=== PATIENT | female | born 1940 | race Two or more races ===

== ENCOUNTER 2019-04-03 10:49 | Emergency (ER) | payer MEDICARE, OTHER ==
[~2019-04-03] VITALS: Ht 160 cm; Wt 91.0 kg
[~2019-04-03 10:49] MED LIST: CLOP75TA16
[2019-04-03 16:17] VITALS: BP 155/89
== END 2019-04-03 16:18 | disposition home or self-care (01) ==
LOC: ER 11:12
DX: S09.8XXA Other specified injuries of head, initial encounter (principal); E78.00 Pure hypercholesterolemia, unspecified; W18.39XA Other fall on same level, initial encounter; Y93.89 Activity, other specified; Y92.89 Other specified places as the place of occurrence of the external cause; Y99.8 Other external cause status
CPT/HCPCS: 99284

== ENCOUNTER 2019-12-29 20:03 | Emergency (ER) | payer OTHER ==
[~2019-12-29] VITALS: Ht 162.6 cm; Wt 90.0 kg
[~2019-12-29 20:03] MED LIST changes: -CLOP75TA16; +CLOP75TA4
[2019-12-29 22:36] LABS: BASOPHILS % 0.7 % (0.0-2.0); EOSINOPHILS % 0.7 % (0.0-5.0); HEMATOCRIT. 39.5 % (36.0-48.0); LYMPHOCYTES % 22.7 % (20.0-50.0); MEAN CORPUSCULAR HEMOGLOBIN 28.3 pg (28.0-32.0); MEAN CORPUSCULAR VOLUME 86.2 fL (81.0-99.0); MEAN PLATELET VOLUME 8.9 fl (7.4-10.4); MONOCYTES % 8.9 % (2.0-8.0); PLATELET 249 x1000/uL (130-400); RED BLOOD CELL COUNT 4.58 mill/uL (4.2-5.4); RED CELL DISTRIBUTION WIDTH 15.8 % (11.6-14.6)
[2019-12-29 22:42] LABS: CHLORIDE 104 mEq/L (98-107)
[2019-12-29 23:15] VITALS: BP 167/82
== END 2019-12-29 23:16 | disposition home or self-care (01) ==
LOC: ER 20:03
DX: B34.9 Viral infection, unspecified (principal); R42 Dizziness and giddiness; H92.03 Otalgia, bilateral
CPT/HCPCS: 36415; 71045; 80053; 85025; 93005; 99284

== ENCOUNTER 2022-07-27 20:18 | Emergency (ER) | payer MEDICARE ==
[~2022-07-27] VITALS: Ht 170.2 cm; Wt 104.0 kg
[~2022-07-27 20:18] MED LIST changes: +ASPI-1406 MT; +CLOP-31 PO; -CLOP75TA4; +COR6 MT; +ERGO1250; +FURO-151 MT; +LOSA50TA41 PO; +SIMV10TA97 PO
[2022-07-27] MEDS ORDERED: ACETAMINOPHEN 325MG TABLET PO ONE (21:15)
[2022-07-27] MEDS ORDERED: HYDR-4001 MT (22:42)
[2022-07-27] MEDS ORDERED: ACET-2708 MT (22:42)
[2022-07-27] MEDS ORDERED: HYDROCODONE/ACETAMINOPHEN 5/325MG TABLET PO ONE (22:45)
[2022-07-27 22:51] VITALS: BP 155/64
== END 2022-07-27 22:45 | disposition home or self-care (01) ==
LOC: ER 20:18
DX: S82.092A Other fracture of left patella, initial encounter for closed fracture (principal); M17.12 Unilateral primary osteoarthritis, left knee; E78.00 Pure hypercholesterolemia, unspecified; I10 Essential (primary) hypertension; W01.0XXA Fall on same level from slipping, tripping and stumbling without subsequent striking against object, initial encounter; Y93.89 Activity, other specified; Y92.009 Unspecified place in unspecified non-institutional (private) residence as the place of occurrence of the external cause; Z88.6 Allergy status to analgesic agent
CPT/HCPCS: 29505; 73552; 73562; 73590; 99284

== ENCOUNTER 2022-09-22 08:10 | Inpatient (IN) | payer MEDICARE ==
[~2022-09-22] VITALS: Ht 162.6 cm; Wt 87.1 kg
[~2022-09-22 08:10] MED LIST changes: +ACET-2708 MT; +HYDR-4001 MT
[2022-09-22] MEDS ORDERED: POTA8TAB70 PO (09:01)
[2022-09-22] MEDS ORDERED: IODIXANOL 320MG/ML 100 ML BOTTLE IV ONE (09:36)
[2022-09-22] MEDS ORDERED: HEPARIN 1000 UNITS/ML 10ML ONE (09:46)
[2022-09-22] MEDS ORDERED: FENTANYL CITRATE/PF 50MCG/ML 2ML VIAL ONE (09:50)
[2022-09-22] MEDS ORDERED: MIDAZOLAM HCL 2 MG/2 ML VIAL ONE (09:50)
[2022-09-22] MEDS ORDERED: LIDOCAINE HCL/PF 2% 20MG/ML 5 ML/VIAL ONE (10:05)
[2022-09-22] MEDS ORDERED: LIDOCAINE HCL 1% 20ML VIAL (Pyxis) INJ ONE (10:20)
[2022-09-22] MEDS ORDERED: HYDRALAZINE 20MG/ML VIAL ONE (10:45)
[2022-09-22] MEDS ORDERED: CLOPIDOGREL 75MG TABLET ONE (10:50)
[2022-09-22] MEDS ORDERED: TICAGRELOR 90 MG TABLET PO ONE (11:02)
[2022-09-22] MEDS ORDERED: ATROPINE SULFATE 1MG/10ML SYR IV PRN (11:15)
[2022-09-22] MEDS ORDERED: ACETAMINOPHEN 325MG TABLET PO PRN (11:15)
[2022-09-22] MEDS ORDERED: ONDANSETRON HCL 4MG/2ML INJ IV PRN (11:15)
[2022-09-22] MEDS ORDERED: MORPHINE SULFATE 2 MG/ML CPJ (NOT FOR IM USE) IV ONE (11:27)
[2022-09-22 12:33] VITALS: BP 133/91
[2022-09-22 13:12] VITALS: BP 133/91
[2022-09-22] MEDS ORDERED: HYDROCODONE/ACETAMINOPHEN 5/325MG TABLET PO NR (14:00)
[2022-09-22] MEDS ORDERED: HYDROCODONE/ACETAMINOPHEN 5/325MG TABLET PO PRN (14:00)
[2022-09-22 16:05] VITALS: BP 188/91
[2022-09-22] MEDS ORDERED: ACETAMINOPHEN 500MG TABLET PO PRN (17:30)
[2022-09-22] MEDS ORDERED: ENALAPRIL 2.5MG/2ML VIAL 2ML IV PRN (17:30)
[2022-09-22] MEDS: TICAGRELOR 90 MG TABLET PO SCH (17:41)
[2022-09-22] MEDS: CARVEDILOL 6.25 MG TABLET PO SCH (17:45)
[2022-09-22] MEDS ORDERED: NALOXONE HCL 0.4MG/ML VIAL IV PRN (19:00)
[2022-09-22] MEDS ORDERED: ENALAPRIL 1.25MG/ML VIAL 1ML IV PRN (19:00)
[2022-09-22 20:04] VITALS: BP 158/75
[2022-09-22] MEDS ORDERED: ATORVASTATIN CALCIUM 10MG TABLET PO SCH (21:00)
[2022-09-22 22:04] VITALS: BP 149/95
[2022-09-23] VITALS (7 sets, daily range): BP systolic 128–162; BP diastolic 64–88
[2022-09-23 07:50] LABS: BASOPHILS % 0.5 % (0.0-2.0); EOSINOPHILS % 0.9 % (0.0-5.0); HEMATOCRIT. 39.3 % (36.0-48.0); LYMPHOCYTES % 15.8 % (20.0-50.0); MEAN CORPUSCULAR HEMOGLOBIN 29.8 pg (28.0-32.0); MEAN PLATELET VOLUME 9.5 fl (7.4-10.4); MONOCYTES % 10.7 % (2.0-8.0); NEUTROPHILS % 72.1 % (40.0-76.0); PLATELET 214 x1000/uL (130-400); RED BLOOD CELL COUNT 4.36 mill/uL (4.2-5.4)
[2022-09-23] MEDS ORDERED: LOSARTAN POTASSIUM 50 MG TABLET PO SCH (09:00)
[2022-09-23] MEDS ORDERED: FUROSEMIDE 40MG TABLET PO SCH (09:00)
[2022-09-23] MEDS ORDERED: POTASSIUM CHLORIDE 8 MEQ TABLET.SA PO SCH (09:00)
[2022-09-23] MEDS: TICAGRELOR 90 MG TABLET PO SCH (09:08)
[2022-09-23] MEDS: CARVEDILOL 6.25 MG TABLET PO SCH (09:08)
[2022-09-23 09:12] LABS: CHLORIDE 103 mEq/L (98-107)
[2022-09-23] MEDS ORDERED: POTASSIUM CHLORIDE 20MEQ/PACKET PO NR (09:56)
== END 2022-09-23 11:30 | disposition home or self-care (01) | DRG 247 ==
LOC: CCL 08:10 → 3WST 08:11
PROVIDERS: ADMIT Specialist; ATTEND Specialist
PROC: 027034Z Dilation of Coronary Artery, One Artery with Drug-eluting Intraluminal Device, Percutaneous Approach (ICD-10-PCS; principal; 2022-09-22)
PROC: 4A023N7 Measurement of Cardiac Sampling and Pressure, Left Heart, Percutaneous Approach (ICD-10-PCS; 2022-09-22)
PROC: B211YZZ Fluoroscopy of Multiple Coronary Arteries using Other Contrast (ICD-10-PCS; 2022-09-22)
PROC: B215YZZ Fluoroscopy of Left Heart using Other Contrast (ICD-10-PCS; 2022-09-22)
DX: I25.10 Atherosclerotic heart disease of native coronary artery without angina pectoris (principal); E87.6 Hypokalemia; I10 Essential (primary) hypertension; E78.5 Hyperlipidemia, unspecified; G47.30 Sleep apnea, unspecified; I44.7 Left bundle-branch block, unspecified; Z88.6 Allergy status to analgesic agent; Z79.02 Long term (current) use of antithrombotics/antiplatelets
CPT/HCPCS: 36415; 80048; 85025; 92928; 93005; 93458; C1725; C1760; C1769; C1874; C1887; C1893; J0360; J1644; J2250; J2270; J3010; J3490; Q9967; J8499

== ENCOUNTER 2022-10-02 15:23 | Inpatient (IN) | payer MEDICARE ==
[~2022-10-02] VITALS: Ht 160 cm; Wt 81.4 kg
[~2022-10-02 15:23] MED LIST changes: +POTA8TAB70 PO
[2022-10-02] MEDS ORDERED: FUROSEMIDE 40MG/4ML VIAL IV ONE (16:00)
[2022-10-02] MEDS ORDERED: NITROGLYCERIN 0.4MG TABLET SL SL PRN (16:00)
[2022-10-02 16:47] LABS: HEMATOCRIT. 41.7 % (36.0-48.0); HEMOGLOBIN. 13.7 g/dL (12.0-16.0); MEAN CORPUSCULAR HEMOGLOBIN 29.1 pg (28.0-32.0); MEAN CORPUSCULAR VOLUME 88.8 fL (81.0-99.0); RED CELL DISTRIBUTION WIDTH 14.8 % (11.6-14.6)
[2022-10-02 17:10] LABS: CHLORIDE 99 mEq/L (98-107)
[2022-10-02 17:48] LABS: PLATELET ESTIMATE NORMAL
[2022-10-02 17:49] LABS: MEAN PLATELET VOLUME 10.7 fl (7.4-10.4); PLATELET 205 x1000/uL (130-400)
[2022-10-02 23:00] VITALS: BP 170/93
[2022-10-03] MEDS ORDERED: NITROGLYCERIN OINT 1GM/INCH UDPKT TD PRN (00:15)
[2022-10-03] MEDS ORDERED: ACETAMINOPHEN 325MG TABLET PO PRN (00:15)
[2022-10-03] MEDS ORDERED: ZOLPIDEM TARTRATE 5MG TABLET PO PRN (00:15)
[2022-10-03] MEDS ORDERED: HYDROCODONE/ACETAMINOPHEN 5/325MG TABLET PO PRN (00:15)
[2022-10-03] MEDS: CLOPIDOGREL 75MG TABLET PO SCH ×2 (00:38→09:36)
[2022-10-03] MEDS ORDERED: NALOXONE HCL 0.4MG/ML VIAL IV PRN (00:45)
[2022-10-03 04:00] VITALS: BP 154/87
[2022-10-03 08:00] VITALS: BP 146/73
[2022-10-03] MEDS ORDERED: FUROSEMIDE 40MG/4ML VIAL IVP SCH (09:00)
[2022-10-03] MEDS: FAMOTIDINE 20MG TABLET PO SCH ×2 (09:36→20:16)
[2022-10-03] MEDS: ENOXAPARIN 40MG/0.4ML SYR SUBCUT SCH (09:36)
[2022-10-03] MEDS: LOSARTAN POTASSIUM 50 MG TABLET PO SCH (09:37)
[2022-10-03] MEDS: CARVEDILOL 6.25 MG TABLET PO SCH ×2 (09:37→20:16)
[2022-10-03 12:00] VITALS: BP 128/71
[2022-10-03] MEDS: LORATADINE 10MG TABLET PO SCH (13:20)
[2022-10-03] MEDS: IPRATROPIUM/ALBUTEROL 0.5-3(2.5)MG/3ML NEB HHN SCH ×2 (13:31→20:24)
[2022-10-03 16:00] VITALS: BP 146/83
[2022-10-03 20:00] VITALS: BP 147/79
[2022-10-03] MEDS ORDERED: ATORVASTATIN CALCIUM 40MG TABLET PO SCH (21:00)
[2022-10-04] VITALS: BP 144/82
[2022-10-04 04:00] VITALS: BP 138/82
[2022-10-04 07:13] LABS: BASOPHILS % 0.7 % (0.0-2.0); EOSINOPHILS % 1.5 % (0.0-5.0); HEMATOCRIT. 38.5 % (36.0-48.0); HEMOGLOBIN. 12.8 g/dL (12.0-16.0); MEAN CORPUSCULAR HEMOGLOBIN 29.4 pg (28.0-32.0); MEAN CORPUSCULAR VOLUME 88.2 fL (81.0-99.0); MEAN PLATELET VOLUME 9.6 fl (7.4-10.4); MONOCYTES % 12.7 % (2.0-8.0); NEUTROPHILS % 61.1 % (40.0-76.0); PLATELET 214 x1000/uL (130-400); RED BLOOD CELL COUNT 4.36 mill/uL (4.2-5.4); RED CELL DISTRIBUTION WIDTH 14.8 % (11.6-14.6)
[2022-10-04 08:00] VITALS: BP 119/71
[2022-10-04] MEDS: IPRATROPIUM/ALBUTEROL 0.5-3(2.5)MG/3ML NEB HHN SCH ×2 (08:23→12:09)
[2022-10-04 08:39] LABS: CHLORIDE 101 mEq/L (98-107)
[2022-10-04] MEDS: LOSARTAN POTASSIUM 50 MG TABLET PO SCH (09:35)
[2022-10-04] MEDS: ENOXAPARIN 40MG/0.4ML SYR SUBCUT SCH (09:35)
[2022-10-04] MEDS: FAMOTIDINE 20MG TABLET PO SCH (09:35)
[2022-10-04] MEDS: CLOPIDOGREL 75MG TABLET PO SCH (09:35)
[2022-10-04] MEDS: CARVEDILOL 6.25 MG TABLET PO SCH (09:36)
[2022-10-04] MEDS: LORATADINE 10MG TABLET PO SCH (09:37)
[2022-10-04 12:00] VITALS: BP 133/66
[2022-10-04] MEDS ORDERED: FUROSEMIDE 40MG TABLET PO NR (13:00)
[2022-10-04] MEDS ORDERED: POTASSIUM CHLORIDE 20MEQ TABLET SR PO NR (13:00)
[2022-10-04 14:36] VITALS: BP 133/66
[2022-10-04] MEDS ORDERED: CARVEDILOL 3.125 MG TABLET PO SCH (21:00)
[2022-10-05] MEDS ORDERED: FUROSEMIDE 40MG TABLET PO SCH (09:00)
[2022-10-05] MEDS ORDERED: POTASSIUM CHLORIDE 20MEQ TABLET SR PO SCH (09:00)
== END 2022-10-04 15:17 | disposition home or self-care (01) | DRG 291 ==
LOC: ER 15:23 → 7WST 20:31 → ENRESERV 22:19
PROVIDERS: ADMIT Internal Medicine; ATTEND Internal Medicine
DX: I11.0 Hypertensive heart disease with heart failure (principal); I50.23 Acute on chronic systolic (congestive) heart failure; I44.7 Left bundle-branch block, unspecified; I25.10 Atherosclerotic heart disease of native coronary artery without angina pectoris; G47.33 Obstructive sleep apnea (adult) (pediatric); E78.5 Hyperlipidemia, unspecified; E78.00 Pure hypercholesterolemia, unspecified; N28.9 Disorder of kidney and ureter, unspecified; Z88.6 Allergy status to analgesic agent; Z88.8 Allergy status to other drugs, medicaments and biological substances; Z79.02 Long term (current) use of antithrombotics/antiplatelets; Z79.899 Other long term (current) drug therapy; Z91.041 Radiographic dye allergy status; Z95.5 Presence of coronary angioplasty implant and graft; Z95.1 Presence of aortocoronary bypass graft
CPT/HCPCS: 36415; 71045; 71275; 80048; 80053; 83880; 84443; 84484; 85025; 93005; 93306; 94640; 97162; 99285; J1650; J1940